=== PATIENT | male | born 2000 | race Caucasian/White ===

== ENCOUNTER 2021-02-06 18:22 | Emergency (ER) | payer OTHER ==
[2021-02-06 18:27] VITALS: BP 144/78
[2021-02-06] MEDS ORDERED: BUFFERED LIDOCAINE 10 ML SYRINGE SUBQ STA (18:30)
--- NOTE | 2021-02-06 18:31 | ED Physician Documentation ---
PD HPI LOWER EXT INJURY - Stated complaint Stated Complaint: LEFT LEG LAC - Chief complaint Chief Complaint: Laceration - History obtained from History obtained from: Patient (21-year-old gentleman who does not know his tetanus status, but he is in the so presumed up-to-date cut himself accidentally with a hot box checker to the left thigh just prior to arrival.) Review of Systems Constitutional: reports: Reviewed and negative Eyes: reports: Reviewed and negative Ears: reports: Reviewed and negative Nose: reports: Reviewed and negative Throat: reports: Reviewed and negative Cardiac: reports: Reviewed and negative PD PAST MEDICAL HISTORY - Present Medications Home Medications: Ambulatory Orders Medication Instructions Recorded Confirmed No Known Home Medications 02/06/21 02/06/21 - Allergies Allergies/Adverse Reactions: Allergies Allergy/AdvReac Type Severity Reaction Status Date / Time No Known Drug Allergies Allergy Verified 02/06/21 18:25 PD ED PE NORMAL - Vitals Vital signs reviewed: Yes - General General: Alert and oriented X 3, No acute distress - Extremities Extremities: Other (1.5 cm laceration left distal medial thigh, just into subcutaneous tissue without distal neurovascular compromise.) - Neuro Neuro: Alert and oriented X 3, Normal speech Results - Vitals Vitals: Vital Signs - 24 hr 02/06/21 18:25 Temperature 36.3 C L Heart Rate 86 Respiratory 16 Rate Blood Pressure 144/78 H O2 Saturation 98 Oxygen O2 Source Room air Procedures - Laceration (location) L leg Length in cm: 1.5 Wound type: Linear, Into subcut fat Neurovascular status: Sensory intact, Motor intact, Vascular intact Anesthesia: Lidocaine 1%, With bicarb Wound preparation: Irrigated copiously NS Skin layer closure: Nylon, Interrupted, Size #-0 - enter number (4-0), Sutures - enter # (3) Other: Patient tolerated well, No complications, Neurovascular intact, Tetanus UTD Departure - Departure Disposition: 01 Home, Self Care Clinical Impression: Laceration of left leg Qualifiers: Encounter type: initial encounter Qualified Code(s): S81.812A - Laceration without foreign body, left lower leg, initial encounter Condition: Good Record reviewed to determine appropriate education?: Yes Instructions: ED Laceration All Comments: Come back for any signs of infection which would include: Redness, swelling, drainage, increased pain, or fevers. You can wash it soap and water. Keep it covered and moist with bacitracin ointment which is available over the counter; avoid neosporin. Follow-up with your physician in About 14 days for suture removal.
== END 2021-02-06 18:46 | disposition home or self-care (01) ==
LOC: ED 18:22 → EDBD 18:22 → ED 18:46
DX: S81.812A Laceration without foreign body, left lower leg, initial encounter (principal); W26.0XXA Contact with knife, initial encounter; Y93.E9 Activity, other interior property and clothing maintenance; Y92.9 Unspecified place or not applicable
CPT/HCPCS: 12001; 99281; 99282

== ENCOUNTER 2021-07-28 10:39 | Emergency (ER) | payer OTHER ==
[2021-07-28 10:54] VITALS: BP 118/72
== END 2021-07-28 13:14 | disposition left against medical advice (07) ==
LOC: ED 10:39
DX: Z53.21 Procedure and treatment not carried out due to patient leaving prior to being seen by health care provider (principal)

== ENCOUNTER 2021-11-05 10:25 | Emergency (ER) | payer OTHER ==
[2021-11-05 10:32] VITALS: BP 135/78
--- NOTE | 2021-11-05 10:42 | ED Physician Documentation ---
PD HPI URI - Stated complaint Stated Complaint: SORE THROAT - Chief complaint Chief Complaint: Heent - History obtained from History obtained from: Patient - History of Present Illness Timing - onset: How many days ago (5) Timing duration: Days (5) Timing details: Gradual onset, Still present (steadily worsening.) Associated symptoms: Sore throat, Swollen nodes. No: Fever, Nasal congestion, Dry cough Contributing factors: No: Sick contact, Unimmunized Recently seen: Clinic (He had 4 wisdom teeth extracted 5 days ago and started with sore throat and swollen tonsil the next day. This has continued to worsen. No general URI symptoms.) Review of Systems Constitutional: denies: Fever, Chills Nose: denies: Rhinorrhea / runny nose, Congestion Throat: reports: Sore throat, Swollen tonsils Respiratory: denies: Cough GI: denies: Nausea, Vomiting, Diarrhea PD PAST MEDICAL HISTORY - Past Medical History Cardiovascular: None Endocrine/Autoimmune: None - Past Surgical History Past Surgical History: No - Present Medications Home Medications: Ambulatory Orders Medication Instructions Recorded Confirmed HYDROcod/ACETAM 5/325 [[place] 5/325] 1 ea PO Q6H PRN #12 tablet 11/05/21 cephALEXin [Keflex] 500 mg PO QID 5 Days #20 cap 11/05/21 - Allergies Allergies/Adverse Reactions: Allergies Allergy/AdvReac Type Severity Reaction Status Date / Time No Known Drug Allergies Allergy Verified 11/05/21 10:32 - Social History Does the pt smoke?: No Smoking Status: Never smoker Does the pt drink ETOH?: No Does the pt have substance abuse?: No - Immunizations Immunizations are current?: Yes PD ED PE NORMAL - Vitals Vital signs reviewed: Yes - General General: Alert and oriented X 3, No acute distress, Well developed/nourished - HEENT HEENT: No: Pharynx benign (right lower extraction site with mild redness and swelling of gingival on lingula side that extends to the right pretonsillar and the tonsil area. Tonsils with swelling and exudate and some malodor. Other extractions sites appear well. ) - Neck Neck: Supple, no meningeal sign, Other (large 2-3 cm tender anterior node right side neck. ) - Cardiac Cardiac: RRR, No murmur - Respiratory Respiratory: Clear bilaterally - Derm Derm: Normal color, Warm and dry - Neuro Neuro: Alert and oriented X 3, No motor deficit, Normal speech Results - Vitals Vitals: Vital Signs - 24 hr 11/05/21 10:28 Temperature 36.3 C L Heart Rate 78 Respiratory 16 Rate Blood Pressure 135/78 H O2 Saturation 99 Oxygen O2 Source Room air - Labs Labs: Laboratory Tests 11/05/21 10:32 Group A Strep Rapid Negative PD MEDICAL DECISION MAKING - ED course Complexity details: reviewed results, considered differential (clinically appears some redness/swelling around right lower molar extraction and then along right tonsil and pretonsillar area without peritonsillar edema per se. I think this relates to oral abril post extraction, so will treat with abx (not seeming strep tonsils per se). ), d/w patient Departure - Departure Disposition: Home, Self Care Clinical Impression: Exudative tonsillitis, Status post tooth extraction Condition: Stable Record reviewed to determine appropriate education?: Yes Instructions: ED Strep Pharyngitis Poss Prescriptions: cephALEXin [Keflex] 500 mg PO QID 5 Days #20 cap HYDROcod/ACETAM 5/325 [[place] 5/325] 1 ea PO Q6H PRN #12 tablet PRN Reason: Pain Comments: Your rapid strep test for group A strep is negative. However this is not particularly test for other types of strep or other bacteria. There were is a culture component to it that will result in a couple of days to look for other types of strep. However the timing of this infection with your dental extraction is too coincidental and I presume there is some extension of infection from mouth organisms into the tonsils. Therefore I would treat it with antibiotics presuming a bacterial infection. Cephalexin 4 times a day for 5 days. Also use Tylenol or ibuprofen regularly for pain or swelling. You can add some diphenhydramine (Benadryl) liquid periodically to help with the local numbing effect and can dry up some of the secretions. Add hydrocodone every 4-6 hours if needed for worse pain with the intention being short-term. I transmitted your prescriptions to [facility] pharmacy in [place]. I am prescribing a short course of narcotic pain medication for you. These are potentially dangerous and addictive medications that should be used carefully. These medications may constipate you. Take an [id number] stool softener such as docusate twice daily with plenty of water while taking these medications. If you go 24 hours without a bowel movement, take [id number] MiraLAX, per package instructions. Do not drink or drive while taking these medications. If you received narcotic or sedating medications while in the emergency department do not drive for 24 hours. Store this medication in a safe, secure place and out of reach of children. It is a violation of federal law to give or sell this medication to another person or to use in a manner other than prescribed. The ED will not refill narcotic prescriptions, including prescriptions lost or stolen. You can dispose of unwanted medications at the [facility]'s office or at several pharmacies such as [facility] Discharge Date/Time: 11/05/21 11:33
[2021-11-05 10:55] LABS: RAPID STREP SCREEN Negative (Negative)
[2021-11-05] MEDS ORDERED: diphenhydrAMINE ELIXIR 25 MG/10 ML UDC PO STA (11:20)
[2021-11-05] MEDS ORDERED: ACETAMINOPHEN 325 MG TABLET PO STA (11:20)
[2021-11-05] MEDS ORDERED: cephALEXin 250 MG CAPSULE PO STA (11:20)
[2021-11-05] MEDS ORDERED: DEXAMETHASONE 10 MG/ML VIAL PO STA (11:20)
== END 2021-11-05 11:33 | disposition home or self-care (01) ==
LOC: ED 10:25
DX: J03.90 Acute tonsillitis, unspecified (principal); Z98.818 Other dental procedure status
CPT/HCPCS: 87070; 87077; 87430; 99282; 99283; A9270

== ENCOUNTER 2021-11-07 10:58 | Emergency (ER) | payer OTHER ==
[2021-11-07] MEDS ORDERED: DEXAMETHASONE 10 MG/ML VIAL PO STA (11:57)
[2021-11-07] MEDS ORDERED: LIDOCAINE 1% 2 ML VIAL MC ONE (11:57)
[2021-11-07] MEDS ORDERED: cefTRIAXone 1 GM VIAL IM STA (11:57)
[2021-11-07] MEDS ORDERED: CHERRY SYRUP 10 ML UDC PO ONE (11:57)
--- NOTE | 2021-11-07 12:11 | ED Physician Documentation ---
PD HPI HEENT - Stated complaint Stated Complaint: SORE THROAT - Chief complaint Chief Complaint: Heent - History obtained from History obtained from: Patient - History of Present Illness Timing - onset: How many days ago (3) Timing - duration: Days (3) Timing - details: Gradual onset, Still present Location: Right ear, Throat Improves: Medication Worsens: Swalllowing Associated symptoms: Congestion, Rhinorrhea, Headache Similar symptoms before: Diagnosis (viral uri) Recently seen: Surgery - Additional information Additional information: 21-year-old male who had all 4 wisdom teeth removed 1 week ago has developed a sore throat he was seen in the emergency department here 2 days ago had a rapid strep which was negative and he was placed on some Keflex. He has had progression of his symptoms and now has pain in his right ear as well. He states that his teeth feel entirely fine. Review of Systems Constitutional: denies: Fever Eyes: denies: Decreased vision Ears: reports: Ear pain Nose: reports: Rhinorrhea / runny nose, Congestion Throat: reports: Sore throat Cardiac: denies: Chest pain / pressure, Palpitations Respiratory: denies: Dyspnea, Cough, Wheezing GI: denies: Abdominal Pain, Nausea, Vomiting, Constipation, Diarrhea : denies: Dysuria, Frequency PD PAST MEDICAL HISTORY - Past Medical History Past Medical History: No Cardiovascular: None Endocrine/Autoimmune: None - Past Surgical History Past Surgical History: No - Present Medications Home Medications: Ambulatory Orders Medication Instructions Recorded Confirmed HYDROcod/ACETAM 5/325 [[place] 5/325] 1 ea PO Q6H PRN #12 tablet 11/05/21 11/07/21 cephALEXin [Keflex] 500 mg PO QID 5 Days #20 cap 11/05/21 11/07/21 Azithromycin [Zithromax] 250 mg PO DAILY #6 tablet 11/07/21 - Allergies Allergies/Adverse Reactions: Allergies Allergy/AdvReac Type Severity Reaction Status Date / Time No Known Drug Allergies Allergy Verified 11/05/21 10:32 - Social History Does the pt smoke?: No Smoking Status: Never smoker Does the pt drink ETOH?: No Does the pt have substance abuse?: No - Immunizations Immunizations are current?: Yes PD ED PE NORMAL - Vitals Vital signs reviewed: Yes (Hypertensive mild) - General General: Alert and oriented X 3, No acute distress, Well developed/nourished - HEENT HEENT: Atraumatic, PERRL, EOMI, Other (Right TM is inflamed along the umbo with flattening of the umbo the left is clear pharynx is with 2+ tonsils that are cryptic and exudative. The extraction sites are without inflammation swelling or erythema.) - Neck Neck: Supple, no meningeal sign, No bony TTP - Cardiac Cardiac: RRR, No murmur - Respiratory Respiratory: No respiratory distress, Clear bilaterally - Abdomen Abdomen: Soft, Non tender - Back Back: No CVA TTP, No spinal TTP - Derm Derm: Normal color, Warm and dry, No rash - Extremities Extremities: No deformity, No edema - Neuro Neuro: Alert and oriented X 3, wheat inspector 2-12 intact, No motor deficit, No sensory deficit, Normal speech Eye Opening: Spontaneous Motor: Obeys Commands Verbal: Oriented GCS Score: 15 - Psych Psych: Normal mood, Normal affect Results - Vitals Vitals: Vital Signs - 24 hr 11/07/21 11:05 Temperature 36.6 C Heart Rate 77 Respiratory 16 Rate Blood Pressure 121/82 H O2 Saturation 99 Oxygen O2 Source Room air PD MEDICAL DECISION MAKING - ED course Complexity details: considered differential, d/w patient ED course: 21-year-old male with cryptic exudative tonsillitis and right otitis after a procedure to remove his wisdom teeth has not responded to Keflex given 4 times per day. He is instructed on the use of warm saline gargle to rinse his tonsils he has been given a dose of dexamethasone and Rocephin here in the emergency department and we will change his antibiotic to a azithromycin and expect recovery. Departure - Departure Disposition: 01 Home, Self Care Clinical Impression: Exudative tonsillitis Otitis media Qualifiers: Otitis media type: suppurative Chronicity: acute Laterality: right Recurrence: not specified as recurrent Spontaneous tympanic membrane rupture: without spontaneous rupture Qualified Code(s): H66.001 - Acute suppurative otitis media without spontaneous rupture of ear drum, right ear Condition: Stable Instructions: ED Otitis Media Acute Adult, ED Tonsillitis Follow-Up: [facility] [Provider Group] Prescriptions: Azithromycin [Zithromax] 250 mg PO DAILY #6 tablet Comments: Santosh, today it looks like you have a have exudative tonsillitis and a right middle ear infection. These are usually bacterial processes. The recommendation is to use some warm water with a little bit of salt in it to wash the bacteria and pus off of the tonsils. We have given you a dose of dexamethasone today to help open eustachian tube and reduce the size of the tonsils. I have switched your antibiotic to a azithromycin and this has been E scribed to [facility] in [place].
[2021-11-07 12:26] VITALS: BP 126/78
== END 2021-11-07 12:26 | disposition home or self-care (01) ==
LOC: ED 10:58
DX: J03.90 Acute tonsillitis, unspecified (principal); H66.001 Acute suppurative otitis media without spontaneous rupture of ear drum, right ear
CPT/HCPCS: 96372; 99283; 99284; A9270

== ENCOUNTER 2023-02-24 02:05 | Outpatient (CLI) | payer OTHER | END 2023-02-24 23:59 | disposition EMS.NT | LOC: EMS 02:05 | DX: Z53.20 Procedure and treatment not carried out because of patient's decision for unspecified reasons (principal) ==

== ENCOUNTER 2023-04-27 12:27 | Emergency (ER) | payer OTHER ==
[2023-04-27 12:53] VITALS: BP 136/63
[2023-04-27] MEDS ORDERED: PSEUDOEPHEDRINE 30 MG TABLET PO STA (13:25)
[2023-04-27] MEDS ORDERED: IBUPROFEN 800 MG TABLET PO STA (13:25)
[2023-04-27 13:34] LABS: RAPID STREP SCREEN Negative (Negative)
--- NOTE | 2023-04-27 13:40 | ED Physician Documentation ---
PD HPI HEENT - Stated complaint Stated Complaint: EAR PX, FEVER,SORE THROAT,TAPIA - Chief complaint Chief Complaint: Heent - History obtained from History obtained from: Patient - Additional information Additional information: Patient is a 23-year-old male presenting for evaluation of sore throat and bilateral ear pain that has been present for the past 2 days. Patient states he was recently traveling and after getting up an 8-hour plane trip his symptoms have felt worse. He denies known fever. He is not using any medications for symptoms. Denies cough, congestion, difficulty breathing or swallowing.He has called into work today at the [employer] and is requesting a note for work. Review of Systems Constitutional: denies: Fever Ears: reports: Ear pain Throat: reports: Sore throat Cardiac: denies: Chest pain / pressure Respiratory: denies: Dyspnea, Cough GI: denies: Abdominal Pain, Vomiting Neurologic: denies: Headache PD PAST MEDICAL HISTORY - Past Medical History Past Medical History: No Cardiovascular: None Endocrine/Autoimmune: None - Past Surgical History Past Surgical History: No - Present Medications Home Medications: Ambulatory Orders Medication Instructions Recorded Confirmed HYDROcod/ACETAM 5/325 [[place] 5/325] 1 ea PO Q6H PRN #12 tablet 11/05/21 11/07/21 cephALEXin [Keflex] 500 mg PO QID 5 Days #20 cap 11/05/21 11/07/21 Azithromycin [Zithromax] 250 mg PO DAILY #6 tablet 11/07/21 Amoxicillin 875 mg PO BID 5 Days #10 tablet 04/27/23 Fluoxetine HCl [Prozac] 20 mg PO DAILY 04/27/23 04/27/23 Pseudoephedrine HCl [Sudafed] 30 mg PO Q6HR PRN #20 tablet 04/27/23 - Allergies Allergies/Adverse Reactions: Allergies Allergy/AdvReac Type Severity Reaction Status Date / Time No Known Drug Allergies Allergy Verified 11/05/21 10:32 - Social History Does the pt smoke?: No Smoking Status: Never smoker Does the pt drink ETOH?: No Does the pt have substance abuse?: No - Immunizations Immunizations are current?: Yes PD ED PE NORMAL - General General: Alert and oriented X 3, No acute distress, Well developed/nourished - HEENT HEENT: Atraumatic, Moist mucous membranes, Pharynx benign (No oral swelling, erythema or exudate), Other (Effusions present behind bilateral TMs, no erythema, dullness or bulging to TMs.) - Neck Neck: Supple, no meningeal sign - Cardiac Cardiac: RRR, No murmur - Respiratory Respiratory: No respiratory distress, Clear bilaterally - Derm Derm: Warm and dry - Neuro Neuro: Normal speech Results - Vitals Vitals: Vital Signs - 24 hr 04/27/23 12:43 Temperature 36.9 C Heart Rate 99 Respiratory 14 Rate Blood Pressure 136/63 H O2 Saturation 99 Oxygen O2 Source Room air - Labs Labs: Laboratory Tests 04/27/23 13:15 Group A Strep Rapid Negative PD Medical Decision Making - ED course ED course: Patient with URI symptoms for the past 2 days. Vital signs are stable. Rapid strep is negative. Patient reports having bilateral ear pain and effusions are noted bilaterally but no erythema, dullness or bulging to TMs to suggest bacter ial infection. Appears to have a serous otitis at this time. Discussed conservative treatment with decongestants, anti-inflammatories. However if symptoms or not improving after 48 hours then can consider an antibiotic which she is agreeable to. I have sent a prescription for antibiotics to be started if symptoms or not improving in the next 24 to 48 hours with conservative measures. Patient is advised on concerning symptoms to return for. Departure - Departure Disposition: 01 Home, Self Care Clinical Impression: Viral pharyngitis Condition: Stable Instructions: ED Otitis Media Serous Adult, ED Pharyngitis Viral Prescriptions: Pseudoephedrine HCl [Sudafed] 30 mg PO Q6HR PRN #20 tablet PRN Reason: Cold Symptons Amoxicillin 875 mg PO BID 5 Days #10 tablet Comments: Your strep test is negative. You do have fluid behind your eardrums but at this time I do not see signs of a bacterial infection. I would recommend using [id number] medications such as Sudafed or ibuprofen for your symptoms.If your ear symptoms are not improving over the next 48 hours then we could consider an antibiotic. I have sent a prescription to [facility] in [place] but again I would encourage you to try other treatments first and only start the antibiotic if your symptoms or not improving on 04/29/23. Return to the ER with any worsening symptoms. Forms: Activity restrictions Discharge Date/Time: 04/27/23 13:45
== END 2023-04-27 13:45 | disposition home or self-care (01) ==
LOC: ED 12:27
DX: J02.8 Acute pharyngitis due to other specified organisms (principal)
CPT/HCPCS: 87070; 87077; 87430; 99283; A9270

== ENCOUNTER 2023-08-26 22:52 | Emergency (ER) | payer OTHER ==
[2023-08-26 23:04] VITALS: BP 148/78; O2SAT 100
[2023-08-26] MEDS ORDERED: AMOXICILLIN 250 MG CAPSULE PO STA (23:12)
--- NOTE | 2023-08-26 23:15 | ED Physician Documentation ---
PD HPI HEENT - Stated complaint Stated Complaint: BILAT EAR PX - Chief complaint Chief Complaint: Heent - History obtained from History obtained from: Patient - Additional information Additional information: The patient comes to the emergency department chief complaint of bilateral ear pain after upper respiratory infection for the last 5 weeks. The patient states he had 1 upper respiratory infection and just as that was seeming to be going away, he felt as though he got another one a couple weeks later. He states he has had sinus congestion for over a month and now, he began to have pain in both his ears tonight. He denies any fevers or chills. He states that his cough has mostly gone away. No GI symptoms. He is otherwise healthy. PD PAST MEDICAL HISTORY - Past Medical History Cardiovascular: None Endocrine/Autoimmune: None Psych: Anxiety - Past Surgical History Past Surgical History: No - Present Medications Home Medications: Ambulatory Orders Medication Instructions Recorded Confirmed Fluoxetine HCl [Prozac] 20 mg PO DAILY 04/27/23 08/26/23 Amoxicillin 500 mg PO TID 7 Days #21 cap 08/26/23 - Allergies Allergies/Adverse Reactions: Allergies Allergy/AdvReac Type Severity Reaction Status Date / Time No Known Drug Allergies Allergy Verified 11/05/21 10:32 - Social History Does the pt smoke?: No Smoking Status: Never smoker Does the pt drink ETOH?: Yes Does the pt have substance abuse?: No - Immunizations Immunizations are current?: Yes PD ED PE NORMAL - Vitals Vital signs reviewed: Yes - General General: Alert and oriented X 3, No acute distress, Well developed/nourished - HEENT HEENT: Atraumatic, PERRL, EOMI, Moist mucous membranes, Other (Bulging of bilateral tympanic membranes with erythema and dullness.) - Neck Neck: Supple, no meningeal sign - Cardiac Cardiac: RRR, No murmur - Respiratory Respiratory: No respiratory distress, Clear bilaterally - Derm Derm: Normal color, Warm and dry, No rash - Extremities Extremities: No deformity - Neuro Neuro: Alert and oriented X 3 - Psych Psych: Normal mood, Normal affect Results - Vitals Vitals: Vital Signs - 24 hr 08/26/23 22:56 Temperature 36.7 C Heart Rate 82 Respiratory 16 Rate Blood Pressure 148/78 H O2 Saturation 100 Oxygen O2 Source Room air PD Medical Decision Making - ED course Complexity details: considered differential, d/w patient ED course: I discussed with the patient that he may have an early ear infection which would not be surprising, given the amount of time his sinuses have been clogged. I have started him on amoxicillin in the ED tonight and sent a prescription for the same. We have discussed the usual indications for follow-up and return. Departure - Departure Disposition: 01 Home, Self Care Clinical Impression: Viral upper respiratory infection Acute otitis media Qualifiers: Otitis media type: suppurative Laterality: bilateral Recurrence: non-recurrent Spontaneous tympanic membrane rupture: without spontaneous rupture Qualified Code(s): H66.003 - Acute suppurative otitis media without spontaneous rupture of ear drum, bilateral Condition: Stable Instructions: ED Otitis Media Acute Adult, ED Viral Syndrome Prescriptions: Amoxicillin 500 mg PO TID 7 Days #21 cap Comments: Your symptoms are consistent with a viral upper respiratory infection, probably with superimposed ear infection. You been given first dose of antibiotics here. Please pick the rest up at the [facility] pharmacy in [place], where your prescription has been electronically transmitted. [place]. Forms: Activity restrictions
== END 2023-08-26 23:28 | disposition home or self-care (01) ==
LOC: ED 22:52
DX: H66.003 Acute suppurative otitis media without spontaneous rupture of ear drum, bilateral (principal); J06.9 Acute upper respiratory infection, unspecified
CPT/HCPCS: 99282; 99283; A9270

== ENCOUNTER 2024-01-03 18:27 | Emergency (ER) | payer OTHER ==
[2024-01-03 18:57] VITALS: BP 129/74; O2SAT 97
== END 2024-01-03 21:35 | disposition left against medical advice (07) ==
LOC: ED 18:27
DX: Z53.21 Procedure and treatment not carried out due to patient leaving prior to being seen by health care provider (principal)